=== PATIENT | male | born 1950 | race Caucasian/White ===

== ENCOUNTER → 2017-08-23 08:50 | Outpatient (POV) | payer MEDICARE, OTHER, SELFPAY | PROVIDERS: Visit Provider Physician Assistant | DX: Z00.00 Encounter for general adult medical examination without abnormal findings (principal) ==

== ENCOUNTER → 2017-10-06 09:06 | Outpatient (CLI) | payer MEDICARE, OTHER, SELFPAY ==
--- NOTE | 2017-10-06 09:19 | XR_ITS ---
XR chest 2V HISTORY: ITS.REASON: COUGH ORDERING PHYSICIAN: Henry Hernandez MD PATIENT AGE: 66 years COMPARISON: FINDINGS: The cardiomediastinal silhouette and pulmonary vascularity are within normal limits. The lungs are clear without infiltrates, suspicious nodules, or pleural effusions. No acute bony abnormalities. IMPRESSION: Negative chest, no acute finding
[2017-10-06 10:34] LABS: Alanine Aminotransferase 36 U/L (12-78); Albumin Level 4.5 gm/dL (3.4-5.0); Albumin/Globulin Ratio 1.6 (1.1-1.8); Alkaline Phosphatase 89 U/L (46-116); Anion Gap 14.2 mEq/L (5-15); Aspartate Amino Transferase 25 U/L (15-37); Bilirubin,Total 0.7 mg/dL (0.2-1.0); Blood Urea Nitrogen 18 mg/dL (7-18); Calcium 9.3 mg/dL (8.5-10.1); Carbon Dioxide 26 mmol/L (21.0-32.0); Chloride 105 mmol/L (98-107); Chol/HDL Ratio 2.7 (1-3.5); Cholesterol 181 mg/dL (140-200); Estimated Glomerular Filt Rate 61 ml/min (>60); GFR (African American) 74 ML/MIN (>60); Globulin 2.8 gm/dl (1.3-3.2); Glucose 110 mg/dL (74-106); HDL Cholesterol 66 mg/dL (27-67); LDL Cholesterol 105 mg/dL (0-130); Potassium 4.2 mmoL/L (3.5-5.1); Prostate Specific Ag Screen 0.6 ng/mL (0.0-4.0); Sodium 141 mmol/L (136-145); Total Protein,Serum 7.3 gm/dL (6.4-8.2); Triglycerides 50 mg/dL (30-200); VLDL Cholesterol 10 mg/dL (0-40)
== END ==
PROVIDERS: Visit Provider Family Medicine
DX: E78.5 Hyperlipidemia, unspecified (principal); I10 Essential (primary) hypertension; R05 Cough; Z12.5 Encounter for screening for malignant neoplasm of prostate
CPT/HCPCS: 36415; 71046; 80053; 80061; G0103

== ENCOUNTER → 2018-09-06 09:31 | Outpatient (POV) | payer MEDICARE, OTHER, SELFPAY | PROVIDERS: Visit Provider Dermatology | DX: Z00.00 Encounter for general adult medical examination without abnormal findings (principal) ==

== ENCOUNTER → 2018-10-22 07:37 | Outpatient (CLI) | payer MEDICARE, SELFPAY ==
[2018-10-22 11:09] LABS: Alanine Aminotransferase 34 U/L (12-78); Albumin Level 4.1 gm/dL (3.4-5.0); Albumin/Globulin Ratio 1.5 (1.1-1.8); Alkaline Phosphatase 90 U/L (46-116); Anion Gap 16.4 mEq/L (5-15); Aspartate Amino Transferase 18 U/L (15-37); Bilirubin,Total 0.5 mg/dL (0.2-1.0); Blood Urea Nitrogen 17 mg/dL (7-18); Calcium 8.6 mg/dL (8.5-10.1); Carbon Dioxide 25 mmol/L (21.0-32.0); Chloride 107 mmol/L (98-107); Cholesterol 169 mg/dL (140-200); Creatinine,Serum 1.12 mg/dL (0.70-1.30); Estimated Glomerular Filt Rate 66 ml/min (>60); GFR (African American) 79 ML/MIN (>60); Globulin 2.7 gm/dl (1.3-3.2); Glucose 97 mg/dL (74-106); HDL Cholesterol 57 mg/dL (27-67); LDL Cholesterol 104 mg/dL (0-130); Potassium 4.4 mmoL/L (3.5-5.1); Sodium 144 mmol/L (136-145); Total Protein,Serum 6.8 gm/dL (6.4-8.2); Triglycerides 41 mg/dL (30-200); VLDL Cholesterol 8 mg/dL (0-40)
== END ==
PROVIDERS: Visit Provider Family Medicine
DX: E78.5 Hyperlipidemia, unspecified (principal); I10 Essential (primary) hypertension
CPT/HCPCS: 36415; 80053; 80061

== ENCOUNTER → 2019-04-22 08:19 | Outpatient (CLI) | payer MEDICARE, SELFPAY ==
[2019-04-22 09:33] LABS: Alanine Aminotransferase 29 U/L (12-78); Albumin/Globulin Ratio 1.5 (1.1-1.8); Alkaline Phosphatase 82 U/L (46-116); Aspartate Amino Transferase 22 U/L (15-37); Bilirubin,Total 0.5 mg/dL (0.2-1.0); Blood Urea Nitrogen 15 mg/dL (7-18); Calcium 8.7 mg/dL (8.5-10.1); Carbon Dioxide 29 mmol/L (21.0-32.0); Chloride 108 mmol/L (98-107); Chol/HDL Ratio 2.9 (1-3.5); Cholesterol 175 mg/dL (140-200); Creatinine,Serum 1.05 mg/dL (0.70-1.30); Estimated Glomerular Filt Rate 70 ml/min (>60); GFR (African American) 85 ML/MIN (>60); Globulin 2.7 gm/dl (1.3-3.2); Glucose 99 mg/dL (74-106); HDL Cholesterol 61 mg/dL (27-67); LDL Cholesterol 106 mg/dL (0-130); Prostate Specific Ag Screen 0.8 ng/mL (0.0-4.0); Sodium 142 mmol/L (136-145); Total Protein,Serum 6.7 gm/dL (6.4-8.2); Triglycerides 39 mg/dL (30-200); VLDL Cholesterol 8 mg/dL (0-40)
== END ==
PROVIDERS: Visit Provider Family Medicine
DX: E78.5 Hyperlipidemia, unspecified (principal); I10 Essential (primary) hypertension; Z12.5 Encounter for screening for malignant neoplasm of prostate
CPT/HCPCS: 36415; 80053; 80061; G0103

== ENCOUNTER → 2019-08-08 08:10 | Outpatient (POV) | payer MEDICARE, SELFPAY | PROVIDERS: PCP Dermatology; Visit Provider Dermatology | DX: Z00.00 Encounter for general adult medical examination without abnormal findings (principal) ==

== ENCOUNTER → 2019-10-10 08:33 | Outpatient (POV) | payer MEDICARE, SELFPAY | PROVIDERS: PCP Family Medicine; Visit Provider Physician Assistant | DX: Z00.00 Encounter for general adult medical examination without abnormal findings (principal) ==

== ENCOUNTER 2020-03-07 13:44 | Emergency (ER) | payer MEDICARE, SELFPAY ==
[2020-03-07 13:51] VITALS: BP 149/86; PULSE 89; RESP 16; TEMP 36.7; O2SAT 98; BMI 30.7
--- NOTE | 2020-03-07 14:15 | XR_ITS ---
PROCEDURE: XR SHOULDER LT MIN 2V Referring Doctor: Maximiliano Ramon Patient Age:69Y CLINICAL INDICATION: pain, concern for dislocation Patient lifted a bag of trash with sudden onset left shoulder pain COMPARISON: CR CXR2V XR chest 2V from 10/06/2017 FINDINGS: Glenohumeral joint with normal relationships but there is some mild sharpening about the margins of the glenohumeral joint of reflecting developing degenerative changes here. Joint spaces maintained however and there normal glenohumeral relationships. The on the AP external rotation view note modest subacromial space which could reflect rotator cuff demise, -but this is not seen on the AP internal rotation view... These AC joint intact. Scapula intact. Left lung apex unremarkable Bones well mineralized IMPRESSION: No fracture or dislocation. No prominent findings Normal glenohumeral relationships with joint space well maintained However suspect mild early degenerative changes developing at the glenohumeral joint. Other comments in text Dictated by: Kulwant Archuleta MD 03/07/2020 15:43 Kulwant Archuleta MD in [place] 03/07/2020 15:43
--- NOTE | 2020-03-07 14:33 | [facility].EDGENADL ---
ED Disposition Clinical Impression: Left shoulder pain Disposition: Home, Self-Care Condition on Discharge: Good Additional Instructions: Follow-up with your orthopedist in the next week. Use a sling for comfort. Take Tylenol and ibuprofen as needed for pain control. Referrals: Henry Hernandez MD [Primary Care Provider] - - Critical Care Critical Care Time: No Attestation: On 03/07/20, the high probability of a clinically significant, sudden or life threatening deterioration of the following system(s) required my full and direct attention, intervention and personal management. The time I documented below is in addition to time spent performing reported procedures but includes the following listed in this critical care notation. Medical Decision Making - Leonardo Inquiry Pt receiving controlled substance: No Vital Signs: 03/07/20 13:51 Temperature 98.1 F Temperature Source Oral Pulse Rate [Radial] 89 Respiratory Rate 16 Blood Pressure [Right Arm] 149/86 H Blood Pressure Mean [Right Arm] 107 Blood Pressure Position [Right Arm] Sitting 02 Sat by Pulse Oximetry 98 Oxygen Delivery Method Room Air Orders (Tests/Meds): ORDERS Category Date Time Status Shoulder XR left minimum 2 views [XR shoulder LT min 2V Exams 03/07/20 14:15 Taken ] Stat - Radiology Data #1 Image(s): Shoulder Medical Decision Narrative: The patient is a 69-year-old male with story of left shoulder dislocation who presents the emergency department today with shoulder pain after lifting heavy object. Concern for dislocation, labrum tear, rotator cuff tear, pathologic fracture. patient declined pain medication. Neurovascularly intact. No specific bony tenderness. X-ray showed no acute fracture dislocation. Given a sling. Instructed to follow-up with orthopedics in the next week. Return precautions given. Discharged General Adult HPI - General Chief complaint: PAIN Stated complaint: Ao lt shoulder pain Time Seen by Provider: 03/07/20 14:00 Mode of Arrival: Ambulatory Limitations: No Limitations Description of Symptoms (Recalled from ER Triage Doc. by RN): TO ED PER PVT CAR WITH C/O LT SHOULDER PAIN STATES HX OF SAME TODAY LIFTING A 50-60LB BAG AND INCREASE IN PAIN STATES UNABLE TO LIFT ARM - History of Present Illness HPI narrative: The patient is a healthy 69-year-old male who presents to the emergency department today with nontraumatic left shoulder pain. Patient states he was lifting something up above his head when he felt a pop in his left shoulder and then had sudden onset pain. Patient had pain with movement afterwards. No numbness, tingling, paresthesias. Patient has had shoulder surgery before and has dislocated the shoulder. No other complaints. Patient did not fall. - Related Data Previous Rx's Medication Instructions Recorded Benzonatate [Tessalon Perle 100mg 100 mg PO TID PRN #30 cap 11/06/17 Cap] Clarithromycin [Biaxin] 250 mg PO Q12H #20 tab 11/06/17 Fluticasone Propionate [Flonase 1 - 2 spr NS DAILY #1 bottle 11/06/17 50mcg nasal spray 16gm] predniSONE [Prednisone 10mg Tab 10 mg PO UD DOSE PK #21 pack 11/06/17 Dose-Pack] Allergies Allergy/AdvReac Type Severity Reaction Status Date / Time No Known Allergies Allergy Verified 11/06/17 09:49 [facility] History - Hepatitis A Screen Drug use history?: No High risk sexual behaviors?: No History of sexually transmitted infection?: No Currently employed?: No Childcare worker?: No Do you have indoor plumbing?: Yes Do you have electricity?: Yes Attestation statement:: This patient has been screened for Hepatitis A risk factors. - Social History Alcohol Intake: never ROS Obtained: Yes All systems reviewed & no additional complaints - Cardiovascular Cardiovascular: Denies chest pain with activity, Denies dyspnea Physical Exam - General General appearance: alert, in no apparent distress - Chest Chest inspec
[2020-03-07 15:33] VITALS: BP 160/106; PULSE 90; RESP 19; TEMP 36.7; O2SAT 98
== END 2020-03-07 15:35 | disposition home or self-care (01) ==
PROVIDERS: Emergency Provider Emergency Medicine; PCP Family Medicine
DX: M25.512 Pain in left shoulder (principal); X50.0XXA Overexertion from strenuous movement or load, initial encounter; Y92.019 Unspecified place in single-family (private) house as the place of occurrence of the external cause
CPT/HCPCS: 73030; 99282; 99283

== ENCOUNTER → 2020-08-29 09:47 | Outpatient (CLI) | payer MEDICARE, SELFPAY ==
--- NOTE | 2020-08-29 09:49 | MR_ITS ---
PROCEDURE: MR SHOULDER LT WO CON CLINICAL INDICATION: PAIN IN LEFT SHOULDER What the cough make fatty meal will be leaving today 3rd our the the knees appear to be a a common home you will for mucosa school okay 6 0 cervix ever dated no R ight will be careful review might be the lower water on the road COMPARISON: CR XR SHOULDER LT MIN 2V from 03/07/2020 TECHNIQUE: Routine multiplanar multi echo sequences are performed without gadolinium enhancement. FINDINGS: There is complete tear of the supraspinatus tendon with retraction of the musculotendinous fibers. There is high-riding humeral head with subacromial stenosis of 3 mm. Mild hypertrophic changes are present at the acromioclavicular joint. The infraspinatus tendon appears intact as does the subscapularis and teres minor. There is a small shoulder joint effusion. No obvious labral tear. The bicipital tendon is in place. There is some increased T2 signal within the bicipital tendon with some thinning of the tendon superiorly along with fluid in the tendon sheath. Bone marrow edema is present at the greater tuberosity region. Mild osteoarthritic changes are present at the glenohumeral joint. There is some cortical regularity involving the humeral head posteriorly. IMPRESSION: 1. Complete tear of the supraspinatus tendon with retraction of the musculotendinous fibers 2. High-riding humeral head with shoulder joint effusion and mild osteoarthritic change with mild amount of edema in the greater tuberosity. 3. Fluid in the bicipital tendon sheath consistent with tenosynovitis with some thinning of the bicipital tendon superiorly which could be due to partial tear. Dictated by: Darren Pierce MD 08/30/2020 07:23 Darren Pierce MD in [place] 08/30/2020 07:23
== END ==
PROVIDERS: PCP Family Medicine; Visit Provider Family Medicine
DX: M25.512 Pain in left shoulder (principal)
CPT/HCPCS: 73221

== ENCOUNTER → 2020-11-26 15:27 | Outpatient (POV) | payer MEDICARE, SELFPAY | PROVIDERS: Visit Provider Dermatology | DX: Z00.00 Encounter for general adult medical examination without abnormal findings (principal) ==

== ENCOUNTER → 2020-12-07 08:39 | Outpatient (CLI) | payer MEDICARE, SELFPAY ==
[2020-12-07 09:51] LABS: Alanine Aminotransferase 27 U/L (12-78); Albumin Level 4.2 g/dl (3.5-5.0); Albumin/Globulin Ratio 1.9 (1.1-1.8); Alkaline Phosphatase 72 U/L (38-126); Anion Gap 12.4 mEq/L (5-15); Aspartate Amino Transferase 30 U/L (17-59); Bilirubin,Total 0.6 mg/dl (0.2-1.3); Blood Urea Nitrogen 13 mg/dl (9-20); Calcium 9.1 mg/dl (8.4-10.2); Carbon Dioxide 27 mmol/L (22.0-30.0); Chloride 108 mmol/L (98-107); Chol/HDL Ratio 3.1 (1-3.5); Cholesterol 182 mg/dl (140-200); Estimated Glomerular Filt Rate 74 ml/min (>60); GFR (African American) 90 ML/MIN (>60); Globulin 2.2 g/dL (1.3-3.2); Glucose 93 mg/dl (74-100); HDL Cholesterol 59 mg/dl (40-60); Potassium 4.4 mmoL/L (3.5-5.1); Sodium 143 mmol/L (136-145); Total Protein,Serum 6.4 g/dl (6.3-8.2); Triglycerides 59 mg/dl (30-150); VLDL Cholesterol 12 mg/dL (0-40)
[2020-12-07 10:02] LABS: Direct LDL Cholesterol 97.26 mg/dL (100-129)
[2020-12-07 10:21] LABS: Prostate Specific Ag Screen 0.7 ng/ml (0.0-4.0)
== END ==
PROVIDERS: Visit Provider Family Medicine
DX: I10 Essential (primary) hypertension (principal); E78.5 Hyperlipidemia, unspecified; Z12.5 Encounter for screening for malignant neoplasm of prostate
CPT/HCPCS: 36415; 80053; 80061; G0103

== ENCOUNTER → 2021-05-06 10:58 | Outpatient (POV) | payer MEDICARE, SELFPAY | PROVIDERS: Visit Provider Dermatology | DX: Z00.00 Encounter for general adult medical examination without abnormal findings (principal) ==

== ENCOUNTER → 2021-05-13 11:12 | Outpatient (POV) | payer MEDICARE, SELFPAY | PROVIDERS: Visit Provider Dermatology | DX: Z00.00 Encounter for general adult medical examination without abnormal findings (principal) ==

== ENCOUNTER → 2021-11-01 08:03 | Outpatient (CLI) | payer MEDICARE, SELFPAY ==
[2021-11-01 08:19] LABS: Basophils # 0.1 K/mm3 (0-0.2); Basophils % 1.3 % (0.1-2.0); Eosinophils # 0.3 K/mm3 (0.0-0.4); Eosinophils % 7.2 % (0.1-12.0); Hematocrit 42.2 % (42.0-52.0); Hemoglobin 14.3 g/dL (14.1-18.0); Lymphocytes # 1.1 K/mm3 (0.7-4.5); Lymphocytes % 26.3 % (10-50); Mean Corpuscular HGB Conc 33.8 g/dL (31.8-35.4); Mean Corpuscular Hemoglobin 32.8 pg (27.0-31.2); Mean Platelet Volume 9.1 fl (7.4-10.4); Monocytes # 0.3 K/mm3 (0.1-1.0); Monocytes % 7.1 % (1.7-9.3); Neutrophils # 2.5 K/mm3 (1.8-7.8); Neutrophils % 58.2 % (37.0-80.0); Platelet Count 205 K/mm3 (142-424); Red Blood Count 4.35 M/mm3 (4.60-6.20); White Blood Count 4.3 K/mm3 (4.8-10.8)
[2021-11-01 09:02] LABS: Chloride 110 mmol/L (98-107); Potassium 4.2 mmoL/L (3.5-5.1); Sodium 141 mmol/L (136-145)
[2021-11-01 09:04] LABS: Alanine Aminotransferase 26 U/L (12-78); Aspartate Amino Transferase 35 U/L (17-59); Blood Urea Nitrogen 11 mg/dl (9-20); Estimated Glomerular Filt Rate 74 ml/min (>60); GFR (African American) 89 ML/MIN (>60)
[2021-11-01 09:05] LABS: Albumin Level 4.1 g/dl (3.5-5.0); Albumin/Globulin Ratio 1.8 (1.1-1.8); Alkaline Phosphatase 95 U/L (38-126); Anion Gap 8.2 mEq/L (5-15); Bilirubin,Total 0.6 mg/dl (0.2-1.3); Calcium 9.6 mg/dl (8.4-10.2); Carbon Dioxide 27 mmol/L (22.0-30.0); Chol/HDL Ratio 3.3 (1-3.5); Cholesterol 163 mg/dl (140-200); Globulin 2.3 g/dL (1.3-3.2); Glucose 117 mg/dl (74-100); HDL Cholesterol 50 mg/dl (40-60); Total Protein,Serum 6.4 g/dl (6.3-8.2); Triglycerides 67 mg/dl (30-150); VLDL Cholesterol 13 mg/dL (0-40)
[2021-11-01 09:16] LABS: Direct LDL Cholesterol 100.01 mg/dL (100-129)
== END ==
PROVIDERS: Visit Provider Family Medicine
DX: I10 Essential (primary) hypertension (principal); E78.5 Hyperlipidemia, unspecified
CPT/HCPCS: 36415; 80053; 80061; 85025

== ENCOUNTER → 2022-06-23 10:28 | Outpatient (POV) | payer MEDICARE, SELFPAY | PROVIDERS: Visit Provider Dermatology | DX: Z00.00 Encounter for general adult medical examination without abnormal findings (principal) ==

== ENCOUNTER 2024-09-01 08:01 | Outpatient (CLI) | payer MEDICARE, SELFPAY ==
[2024-09-01 08:47] LABS: Eosinophils # 0.2 K/mm3 (0.0-0.4); Eosinophils % 5.3 % (0.1-12.0); Hematocrit 40.8 % (42.0-52.0); Hemoglobin 13.7 g/dL (14.1-18.0); Lymphocytes # 1.1 K/mm3 (0.7-4.5); Lymphocytes % 27.2 % (10-50); Mean Corpuscular HGB Conc 33.6 g/dL (31.8-35.4); Mean Corpuscular Hemoglobin 31.6 pg (27.0-31.2); Monocytes # 0.4 K/mm3 (0.1-1.0); Monocytes % 10.2 % (1.7-9.3); Neutrophils # 2.2 K/mm3 (1.8-7.8); Neutrophils % 55.8 % (37.0-80.0); Platelet Count 167 K/mm3 (142-424); Red Blood Count 4.34 M/mm3 (4.60-6.20); Red Cell Distribution Width 12.1 % (11.5-17.5); White Blood Count 3.9 K/mm3 (4.8-10.8)
[2024-09-01 09:08] LABS: Alanine Aminotransferase 28 U/L (12-78); Albumin Level 4.3 g/dl (3.5-5.0); Albumin/Globulin Ratio 2.4 (1.1-1.8); Alkaline Phosphatase 81 U/L (38-126); Anion Gap 10.8 mEq/L (5-15); Aspartate Amino Transferase 30 U/L (17-59); Bilirubin,Total 0.6 mg/dl (0.2-1.3); Blood Urea Nitrogen 16 mg/dl (9-20); Calcium 9.1 mg/dl (8.4-10.2); Carbon Dioxide 28 mmol/L (22.0-30.0); Chloride 106 mmol/L (98-107); Chol/HDL Ratio 3.8 (1-3.5); Cholesterol 137 mg/dl (140-200); Estimated Glomerular Filt Rate 83 ml/min (>60); GFR (African American) 100 ML/MIN (>60); Globulin 1.8 g/dL (1.3-3.2); Glucose 92 mg/dl (74-100); HDL Cholesterol 36 mg/dl (40-60); Potassium 3.8 mmoL/L (3.5-5.1); Sodium 141 mmol/L (136-145); Total Protein,Serum 6.1 g/dl (6.3-8.2); Triglycerides 51 mg/dl (30-150); VLDL Cholesterol 10 mg/dL (0-40)
[2024-09-01 09:20] LABS: Direct LDL Cholesterol 70.33 mg/dL (100-129)
[2024-09-01 09:27] LABS: Free T4 (Free Thyroxine) 1.19 ng/dl (0.78-2.19)
[2024-09-01 09:40] LABS: Prostate Specific Ag Screen 0.9 ng/ml (0.0-4.0); Thyroid Stimulating Hormone 2.75 uIU/mL (0.465-4.68)
[2024-09-01 09:49] LABS: HIV Combo NEGATIVE (Negative)
[2024-09-01 09:50] LABS: Hemoglobin A1C 5.3 % (4.0-6.0)
[2024-09-01 09:57] LABS: Hepatitis C Ab Qual. W/ RFX NEGATIVE (Negative)
[2024-09-01 09:59] LABS: Vitamin B12 348 pg/mL (239-931)
[2024-09-01 10:15] LABS: Iron 93 ug/dL (49-181); Total Iron Binding Capacity 262 ug/dL (261-462)
[2024-09-01 10:41] LABS: Microscopic, Urine URINE MICROSCOPIC (MICROSCOPIC)
[2024-09-01 10:46] LABS: Ferritin 214 ng/ml (17.9-464)
[2024-09-01 10:57] LABS: Appearance,Urine CLEAR (Clear); Blood, Urine Negative (Negative); Color,Urine YELLOW (Yellow); Glucose,Urine (UA) Negative (Negative); Ketones,Urine Negative (Negative); Leukocyte Esterase,Urine Negative (Negative); Nitrate,Urine Negative (Negative); Protein,Urine Negative (Negative); Specific Gravity, Urine 1.025 (1.005-1.030); Urobilinogen,Urine 0.2 EU/dl (0.2)
[2024-09-01 11:08] LABS: Bilirubin,Urine 3+ (Negative)
[2024-09-01 11:09] LABS: Bacteria,Urine Trace /lpf; Mucus,Urine 1+ /lpf
== END 2024-09-01 23:59 | disposition home or self-care (01) ==
LOC: LAB 08:02
PROVIDERS: PCP Nurse Practitioner Family; Visit Provider Nurse Practitioner Family
DX: E78.5 Hyperlipidemia, unspecified (principal); K21.9 Gastro-esophageal reflux disease without esophagitis; G47.33 Obstructive sleep apnea (adult) (pediatric); M06.9 Rheumatoid arthritis, unspecified; I10 Essential (primary) hypertension; J45.30 Mild persistent asthma, uncomplicated; Z11.59 Encounter for screening for other viral diseases; Z11.4 Encounter for screening for human immunodeficiency virus [HIV]; Z12.5 Encounter for screening for malignant neoplasm of prostate; Z13.1 Encounter for screening for diabetes mellitus; R41.3 Other amnesia; R53.83 Other fatigue; E11.9 Type 2 diabetes mellitus without complications
CPT/HCPCS: 36415; 80053; 80061; 81001; 82306; 82607; 82728; 83036; 83540; 83550; 84156; 84439; 84443; 85025; 86803; 87086; 87389; G0103